=== PATIENT | female | born 1940 | race Caucasian/White ===

== ENCOUNTER → 2019-02-11 | Day surgery (SDC) | payer OTHER ==
[~2019-02-11] MED LIST: JANUMET XR 1001 EACH PO; LIPITOR20 MG PO; METROPOLOL PO; TENORMIN25 MG PO; TRICOR145 MG PO; ZANT PO
== END | disposition home or self-care (01) ==
LOC: ADM 02-09 09:45 → CIR.AMB 06:00
DX: R15.9 Full incontinence of feces (principal)
CPT/HCPCS: 64581; C1778

== ENCOUNTER 2019-02-25 05:45 | Day surgery (SDC) | payer OTHER | END 2019-02-25 13:00 | disposition home or self-care (01) | LOC: CIR.AMB 05:45 | DX: R15.9 Full incontinence of feces (principal) | CPT/HCPCS: 64590; C1767 ==